=== PATIENT | female | born 1950 | race Caucasian/White ===

== ENCOUNTER 2016-07-20 11:26 | Day surgery (SDC) | payer MEDICARE, OTHER ==
[~2016-07-20] VITALS: Ht 167.6 cm; Wt 105.0 kg
[~2016-07-20 11:26] MED LIST: ALBU90AE IH; GLIM1TAB PO; KLO1T PO; Lactated Ringer's 1,000 ML IV ONE; MIRT30TA6 PO; OMEP-113 PO; POTA20TA16 PO; PROP20TA5 PO; SIMV40TA5 PO; VENL75TA3 PO; WARF5TAB7 PO; [UNRECOGNIZED DRUG - CODE] PO
[2016-07-20 13:07] VITALS: BP 118/80; PULSE 96; RESP 16; O2SAT 96
[2016-07-20] MEDS ORDERED: Ondansetron 2 mg/mL 2 mL Inj IVPUSH PRN (14:35)
[2016-07-20] MEDS ORDERED: Lactated Ringer's 1,000 ML IV SCH (14:35)
[2016-07-20] MEDS ORDERED: MetoCLOpramide 5 mg/mL 2 mL Inj IVPUSH PRN (14:35)
--- NOTE | 2016-07-20 14:37 | PCM.HPANE ---
Patient Data Surgeon Admitting Provider: Attending Provider:Gerber Padron MD Primary Care Physician:eSven Alva MD Other Provider: Reason for Visit Z11.12 Colon Cancer Screening R13.10 Dysphagia Ht/WT & BMI Height (Feet): 5 Height (Inches): 6 Weight (Kilograms): 105 Body Mass Index 37.00 Allergies Coded Allergies: codeine (Verified Allergy, Unknown, 09/02/14) tiotropium (Verified Allergy, Unknown, 09/02/14) Past Anesthesia History Anesthesia History: Denies:: Abnormal Airway, Anesthesia Reactions, Difficult Intubation, Fam Anesthesia Reaction, Fam Malignant Hypertherm, Malignant Hyperthermia Diabetes History Hx Diabetes?: Yes Current Bedside Blood Glucose: 120 MRSA MRSA: No Medications Blood Thinner: Coumadin Last Dose Blood Thinner: July 18, 2016 Hypertension Medication: Yes Home Meds Incl Beta Alisia: Yes Date Beta Alisia Taken: July 18, 2016 Time Beta Alisia Taken: 0700 Active Scripts Omeprazole Magnesium (Omeprazole)20 Mg Capsule.dr20 Mg PO DAILY 30 Days Prov:Fartun Ruvalcaba DO 09/03/14 Reported Medications Warfarin Sodium 5 Mg Tablet5 Mg PO DAILY 30 Days Ref 0 07/19/16 Glimepiride 1 Mg Tablet1 Mg PO DAILYAC #30 TABLET Ref 0 07/19/16 Albuterol Sulfate (Proair Respiclick)90 Mcg Aer.pow.ba90 Mcg IH QID 07/19/16 Propranolol HCl 20 Mg Idvtaq34 Mg PO BID 90 Days Ref 0 09/02/14 Mirtazapine 30 Mg Twhyun86 Mg PO HS #30 TABLET Ref 0 09/02/14 Clonazepam 1 Mg Tab1 Mg PO BID PRN For Anxiety 30 Days Ref 0 09/02/14 Quetiapine Fumarate ER (Seroquel XR)150 Mg Mogfi564 Mg PO HS 09/02/14 Discontinued Reported Medications Potassium Chloride 20 Meq Tab.er.prt20 Meq PO DAILY 30 Days Ref 0 TAKE WITH FOOD 07/19/16 Simvastatin 40 Mg Wrjlqo64 Mg PO HS 30 Days Ref 0 09/02/14 Venlafaxine 75 Mg Mxavxo31 Mg PO BID #60 TABLET Ref 0 09/02/14 Bupropion 100 Mg Qvbzez572 Mg PO AM 30 Days Ref 0 09/02/14 Benztropine Mesylate 1 Mg Tablet1 Mg PO BID 30 Days Ref 0 09/02/14 History History of ENT Problems?: No HEENT History: Denies:: Abnormal Airway Difficult Intubation Dysphagia Hearing Problem Denture Type: Full- Upper Full- Lower Teeth Condition: Within Normal Limits Hx of Heart Problems?: Yes Cardiovascular History: Positive for:: Atrial Fibrillation Chest Pain Hypertension Denies:: AICD Pacemaker Valvular Heart Disease Hx of Respiratory Problem?: Yes Respiratory History: Positive for:: COPD Hx Neurologic Problems?: No Neurological History: Denies:: CVA Hx of GI Problems?: Yes Hx of Problems?: No HX of Peritoneal Dialysis: No Hx Musculoskeletal Problems?: No Musculoskeletal History: Denies:: Fibromyalgia Joint Replacement Psycho Social History: Positive for:: Anxiety Hx Depression Hx Surgeries?: Yes (APPENDECTOMY, , TONSILECTOMY) Hx Any Other Health Problems?: No Hx Diabetes: YesBedside Blood Glucose: 120 Hx Alcohol Use: NoHx Substance Use: Yes (meth, clean 8 years) Smoking Status: Current Every Day Smoker Have You Smoked inLast 12 mo: Yes Stop/Bang Treated for Sleep Apnea?: No Do You Have a CPAP Machine?: No S-Snoring: Do You Snore Loudly: No T-Tired: feel tired, fatigued: Yes O-Obsered: Observed not breath: No P-Blood Pressure: treated: Yes B- Body Mass Index > 35 kg/m2: No A- Age over 50: Yes N- Neck Large Circumference: No G- Gender Male: No CLAUDIA Total Score: 3 CLAUDIA Risk Assessment: Low Risk, <3 Yes Risk Assessment Category Category 1A: Patient has history of documented sleep apnea, and HAS NOT received any narcotic, sedative or anesthesia administration during this stay. Category 1B: Patient has history of documented sleep apnea, and HAS received any narcotic , sedative or anesthesia administration during this stay Category 2: Patient has SUSPECTED Obstructive Sleep Apnea, and HAS received any narcotic , sedative or anesthesia administration during this stay. Category 3: Patient has SUSPECTED Obstructive Sleep Apnea and HAS NOT received narcotic, sedative or anesthesia administration during this stay. Category 4: Outpatient in Procedural Areas with known sleep apnea or who screen positive for High Risk via the STOP/BANG questionnaire. Exam Exam Vital Signs Vital Signs Date Time Temp Pulse Resp B/P Pulse Ox O2 Delivery O2 Flow Rate FiO2 07/20/16 13:07 36.0 96 16 118/80 96 Room Air General Appearance: Oriented X3 HEENT/AIRWAY: MP 2 Lungs: Normal Air Movement Heart: Regular Rate/Rhythm Meds/Labs/Diagnostics Admission Meds Current Medications Lactated Ringer's (Lr) 1,000 ml @ 10 mls/hr Q24H ONCE IV Last administered on 07/20/16t 13:27; Start 07/20/16 at 06:00; Stop 07/21/16 at 05:59 Bedside Blood Glucose: 120 Labs Test 07/20/16 13:59 Plan Impression Patient chart reviewed, patient interviewed and anesthestic plan with risks, benefits, and alternatives discussed, and informed consent obtained. ASA Physical Status: ASA3 Severe Disease Anesthetic Plan: MAC Bene/Risks/Altern/Consents: Yes HP Complete Prior to Induction: Yes Trevor Beal MD Jul 20, 2016 14:37
[2016-07-20 14:54] LABS: INR 1.04 ratio
--- NOTE | 2016-07-20 16:24 | PCM.ENDEGD ---
EGD Date of Service: Jul 20, 2016 Physician Gerber Padron MD Pre Procedure Diagnosis: Dysphagia Post Procedure Dx & Findings: Gastritis Procedure Esophagogastroduodenoscopy PROCEDURE IN DETAIL: After proper sedation, Olympus video endoscope was inserted into patient's mouth and esophagus was successfully intubated. Scope introduced esophagus. Esophagus showed normal shiny whitish mucosa consistent with squamous cell component. Z line was intact at 40 cm from the incisors. Scope further advanced to the stomach. The antrum appeared to have isolated redness and edema consistent with gastritis. Biopsies obtained. Cardia fundus body antrum pylorus were all visualized. Retroflexion was done. Stomach was easily inflated and deflatable using air. Scope further events to the distal duodenum. Duodenum revealed normal villous structures with normal appearing folds without any mass ulcer erosion. Impression Gastritis No cause of dysphagia Recommendation Avoid biopsy Aggressive PPI treatment. If persistent dysphagia, would do a barium esophagram and esophageal manometry. Presedation Assessment Risks and Benefits Informed consent was obtained from the patient after all risks and benefits including but not limited to drug reaction, infection, pain, bleeding, perforation, as well as alternatives were discussed. Patient monitoring Continuous pulse oximetry, cardiac monitoring, blood pressure monitoring, IV access, and oxygen at 2L per nasal cannula. Complications There were no periprocedural complications identified. Post Procedure Plan Post Procedure Recommendations 1. Restrict activities today. 2. Resume normal activities in the morning. 3. Resume medications. 4. GERD behavioral modification: - Avoid fatty, acidic, spicy, large meals - Do not lie down after meals - Do not eat or drink anything for at least 2 1/2 hours before going to bed at night - Discontinue tobacco and alcohol - Decrease or avoid caffeine - Avoid chocolate and mints - Decrease weight - Avoid aspirin and non steroidal anti-inflammatory agents (NSAID) such as Aleve, Advil, Mobic, Naproxen, Ibuprofen, etc 5. Add proton pump inhibitor. Take 30 minutes before 1st meal of the day. 6. Patient informed of normal post procedure side effects as bloating, drowsiness, blood streaking in the stool 7. If gastric biopsy reveal H.pylori, continue with appropriate treatment 8. If small bowel biopsy reveals celiac, continue with appropriate treatment 9. Please don't hesitate to call me with any questions Gerber Padron MD Jul 20, 2016 16:24
--- NOTE | 2016-07-20 16:25 | PCM.ENDCOL ---
Colonoscopy Date of Service: Jul 20, 2016 Physician Gerber Padron MD Pre Procedure Diagnosis: Screening Post Procedure Dx & Findings: Polyp hemorrhoids diverticuli Procedure Colonoscopy PROCEDURE IN DETAIL: Prep fair Withdrawal time 10 minutes After unremarkable rectal examination the Olympus video colonoscope was inserted patient's anal canal and was advanced to cecum. Landmarks were identified including the ileocecal valve and appendiceal orifice. Scope was withdrawn systematically. Visualized colonic mucosa showed healthy shiny mucosa with normal healthy-appearing vasculature. In the transverse colon, there was 5-6 mm polyp which was removed completely using cold snare. In the sigmoid colon several diverticuli medium size were noted. In the rectum retroflexion was done which showed hemorrhoids. Anal canal was inspected carefully on the way out and hemorrhoids noted. Impression Polyp 1 status post complete removal Diverticuli Hemorrhoids Recommendation Repeat colonoscopy in 2 years with 2 day prep Diverticular diet Resume Coumadin tomorrow INR today 1.04 Presedation Assessment Risks and Benefits Informed consent was obtained from the patient after all risks and benefits including but not limited to drug reaction, infection, pain, bleeding, perforation, as well as alternatives were discussed. Patient monitoring Continuous pulse oximetry, cardiac monitoring, blood pressure monitoring, IV access, and oxygen at 2L per nasal cannula. Complications There were no periprocedural complications identified. Post Procedure Plan Post Procedure Recommendations 1. Restrict activities today. 2. Resume normal activities in the morning. 3. Resume medications. 4. Patient informed of normal post procedure side effects as bloating, drowsiness, blood streaking in the stool. 5. average risk CRCS. If colon polyps come back as: -Hyperplastic- can repeat colonoscopy in 10 years -Tubular adenoma- repeat colonoscopy in 5 years -Tubulovillous/villous adenoma- repeat colonoscopy in 3 years -If any dysplasia- return to clinic as soon as possible 6. Please don't hesitate to call me with any questions. Gerber Padron MD Jul 20, 2016 16:25
[2016-07-20 16:26] VITALS: BP 144/76; PULSE 106; RESP 16; O2SAT 94
[2016-07-20 16:35] VITALS: BP 130/69; PULSE 93; RESP 24; O2SAT 90
[2016-07-20 16:45] VITALS: RESP 24
--- NOTE | 2016-07-21 09:58 | PCM.ANEP1 ---
Post Anesthesia PACU Phase 1 Assessment Anesthetic Administered: MAC Level of Alertness: Awake, talking Pain: No Nausea or Vomiting: No CV Function & Hydration Stable: Yes Airway Device: Lungs: Normal Air Movement PACU Phase 2 Assessment Patient Instructions Provided: N/A Trevor Beal MD Jul 21, 2016 09:58
--- NOTE | 2016-07-24 17:24 | PATH ---
SURGICAL PATHOLOGY Attending Physician:Gerber Padron M.D. CASE STATUS: Signed Out PATIENT NAME: NADIRA GARCIA PID: [id number] : 1950 DATE COLLECTED:07/20/2016 00:00 SPECIMEN: 1: Gastric, Biopsy 2: Colon, Biopsy CLINICAL HISTORY: 1. GASTRIC BIOPSY 2. TRANSVERSE COLON POLYP FINAL DIAGNOSIS: 1. Gastric Biopsy: Portion of gastric antral mucosa with mild chronic gastritis. No definite. H. pylori organisms identified by H&E stain. Immunohistochemistry studies pending; results will be reported as an addendum. Negative for intestinal metaplasia, dysplasia or malignancy. 2. Transverse Colon Polyp, Biopsies: Portions of sessile serrated adenoma x4. ICD10: K63.5 GROSS DESCRIPTION: The specimen is received in two formalin filled containers labeled with the patient's name. 1). The specimen is sublabeled "gastric" and consists of a 0.3 x 0.3 x 0.2 CM portion of tissue which is entirely submitted in cassette 1A. 2). The specimen is sublabeled "transverse colon polyp" and consists of 4 portions of tissue which aggregate to 0.5 x 0.5 x 0.3 CM. The specimen is entirely submitted in cassette 2A. 07/21/2016 [facility] ICD-9 CODES: CPT CODES: 1: 36230, 38288 2: 46369 PROCEDURE/ADDENDA: Addendum SPI Addendum Diagnosis 1. Gastric Biopsy: Negative for Helicobacter organisms by immunohistochemistry studies. Addendum Comment IMMUNOHISTOCHEMISTRY RESULTS: Block 1A: Negative H. pylori. Electronically Signed Out Tracie Zuiñga MD Electronically Signed Out Tracie Zuñiga MD [facility] [address], [place] [address] Technical component performed at [facility], [facility] [address], [place], [address]
== END 2016-07-20 23:59 | disposition home or self-care (01) ==
LOC: END 11:26
PROVIDERS: ATTEND Internal Medicine
DX: Z12.11 Encounter for screening for malignant neoplasm of colon (principal); D12.3 Benign neoplasm of transverse colon; K57.30 Diverticulosis of large intestine without perforation or abscess without bleeding; K64.9 Unspecified hemorrhoids; K29.50 Unspecified chronic gastritis without bleeding; R13.10 Dysphagia, unspecified; I10 Essential (primary) hypertension; E78.00 Pure hypercholesterolemia, unspecified; E78.5 Hyperlipidemia, unspecified; E11.9 Type 2 diabetes mellitus without complications; J44.9 Chronic obstructive pulmonary disease, unspecified; K21.9 Gastro-esophageal reflux disease without esophagitis; I48.91 Unspecified atrial fibrillation; F17.210 Nicotine dependence, cigarettes, uncomplicated; F32.9 Major depressive disorder, single episode, unspecified; Z79.84 Long term (current) use of oral hypoglycemic drugs; Z79.01 Long term (current) use of anticoagulants
CPT/HCPCS: 36415; 43239; 45385; 85610; J7120